=== PATIENT | female | born 1950 | race Caucasian/White ===

== ENCOUNTER → 2025-04-05 | Outpatient (CLI) | payer MEDICARE, OTHER ==
[2025-04-05 14:19] LABS: BF LYMPHOCYTES 1 %; BF MACROPHAGES 55 %; BF NEUTROPHILS 37 %
[2025-04-06 12:07] LABS: ACID FAST SPEC PROCESSING Direct Inoculation (.)
== END | disposition home or self-care (01) ==
LOC: LAB 11:58
PROVIDERS: ATTEND Orthopaedic Surgery
DX: M25.462 Effusion, left knee (principal)